=== PATIENT | male | born 1990 | race Caucasian/White ===

== ENCOUNTER 2016-05-19 13:03 | Emergency (ER) | payer SELFPAY ==
[~2016-05-19] VITALS: Ht 180.3 cm; Wt 62.0 kg
[2016-05-19 13:04] VITALS: BP 142/65; PULSE 86; RESP 14; TEMP 97.7; O2SAT 97
--- NOTE | 2016-05-19 13:52 | PD ---
HPI Chief Complaint: ENT Complaint Time Seen by Provider: 13:51 Travel History International Travel<30 days: No Contact w/Intl Traveler<30days: No Traveled to known affect area: No History of Present Illness HPI 25-year-old male presents to emergency Department with complaint of left ear pain. He says he has a cerumen impaction and tried removing it and it woke him up. Reports decreased hearing. Denies fever, chills, nausea, vomiting. Denies upper respiratory symptoms. No other medical complaints. No known allergies. No other modifying factors or associated signs and symptoms. PFSH Social History Tobacco Use: No Allergies-Medications (Allergen,Severity, Reaction): Coded Allergies: No Known Allergies (Verified , 05/19/16) Reported Meds & Prescriptions Reported Meds & Active Scripts Active No Active Prescriptions or Reported Medications Review of Systems Except as stated in HPI: all other systems reviewed are Neg Physical Exam Narrative GENERAL: Well-nourished, well-developed male patient, in no acute distress SKIN: Warm and dry. HEAD: Atraumatic. Normocephalic. EYES: Pupils equal and round. No scleral icterus. No injection or drainage. ENT: Mucosa pink and moist. Airway patent. EARS: Bilateral pinnae and external canals appear within normal limits. Unable to visualize bilateral tympanic membrane secondary to bilateral cerumen impaction. NECK: Trachea midline. CARDIOVASCULAR: Regular rate. RESPIRATORY: No accessory muscle use. GASTROINTESTINAL: Flat. MUSCULOSKELETAL: No obvious deformities. No clubbing. No cyanosis. No edema. NEUROLOGICAL: Awake and alert. Oriented 3. No obvious cranial nerve deficits. Motor grossly within normal limits. Normal speech. PSYCHIATRIC: Appropriate mood and affect; insight and judgment normal. Data Data Last Documented VS Vital Signs Date Time Temp Pulse Resp B/P Pulse Ox O2 Delivery O2 Flow Rate FiO2 05/19/16 13:04 97.7 86 14 142/65 97 Orders Ear Irrigation (05/19/16 13:53) MDM Medical Decision Making Medical Screen Exam Complete: Yes Emergency Medical Condition: Yes Medical Record Reviewed: Yes Differential Diagnosis Foreign body, cerumen impaction, otitis media Narrative Course 25-year-old male with bilateral cerumen impaction. Ear irrigations ordered. Cerumen impactions successfully removed by the nurse. On reexamination of bilateral ear canals they erythematous and edematous. We will prescribe Ciprodex for bilateral otitis externa. Ibuprofen prescribed for home also. Patient verbalizes understanding and agreement with treatment plan. Patient is medically cleared and stable for discharge. Discussed reasons to return to the emergency department. Instructed patient to follow up with primary care provider. Patient agrees with treatment plan. The patients vital signs are stable and the patient is stable for outpatient follow-up and treatment. Patient discharged home, stable and in no acute distress. Diagnosis Primary Impression: Bilateral impacted cerumen Additional Impression: Otitis externa of both ears Qualified Code: H60.93 - Otitis externa of both ears, unspecified chronicity, unspecified type Referrals: Primary Care Physician Patient Instructions: Cerumen Impaction (ED), General Instructions, Otitis Externa (ED) Departure Forms: Tests/Procedures, Work Release Enter return to work date: May 20, 2016 Additional Instructions: [id number] eardrops as directed and as needed for ear wax removal Follow-up with primary care provider Return to the emergency department immediately with worsening of symptoms Med/Other Pt SpecificInfo: No Meds Exist/No RX given Scripts Ibuprofen 800 Mg Nsa399 Mg PO Q6HR PRN (PAIN) #30 TAB Ref 0 Prov:Nicolette Logan 05/19/16 Ciprofloxacin-Dexamethasone Otic Drops (Ciprodex Otic Drops)0.3-0.1% Susp4 Drop EACH EAR BID 7 Days Ref 0 Prov:Nicolette Logan 05/19/16 Disposition: 01 DISCHARGE HOME Condition: Stable Nicolette Logan May 19, 2016 13:52
[2016-05-19] MEDS ORDERED: CIPR0.3S EACH EAR (15:20)
[2016-05-19] MEDS ORDERED: IBUP800T23 PO (15:20)
== END 2016-05-19 16:06 | disposition home or self-care (01) ==
LOC: NEPK 13:03
DX: H60.93 Unspecified otitis externa, bilateral (principal); H61.23 Impacted cerumen, bilateral
CPT/HCPCS: 99282